=== PATIENT | female | born 1985 | race Caucasian/White ===

== ENCOUNTER 2016-05-30 18:12 | Emergency (ER) | payer SELFPAY ==
[2016-05-30 18:43] VITALS: TEMP 99.3; BMI 28.5
[2016-05-30 18:55] LABS: AUTOMATED BASOPHIL 0.2 % (0-2); AUTOMATED EOSINOPHIL 0.2 % (0-5); AUTOMATED LYMPH 6.4 % (17-44); AUTOMATED MONOCYTE 3.4 % (3-10); AUTOMATED NEUTROPHIL 89.8 % (45-76); MPV 7.7 fL (7.4-10.4)
[2016-05-30 19:08] LABS: BLOOD UREA NITROGEN 6 MG/DL (7-17); CALC CORRECTED 8.9 MG/DL (8.4-10.2); CALCIUM 8.7 MG/DL (8.4-10.2); CALCULATED OSMOLALITY 271 MOs/Kg (270-290); CHLORIDE 105 mEq/L (98-107); GLUCOSE 105 MG/DL (70-99); SODIUM LEVEL 142 mEq/L (137-146); TOTAL PROTEIN 7.5 G/DL (6.3-8.2)
[2016-05-30] MEDS ORDERED: VALACYCLOVIR HCL 500 MG CAPLET PO ONE (19:31)
--- NOTE | 2016-05-30 19:38 | EDPRACDOC ---
- General Information Chief Complaint: Female Urogenital Problems Stated Complaint: FEVER,ABD PAIN Time Seen by Provider: 05/30/16 19:16 Information Source: Patient Mode of Arrival: Car Home Medications: Home Medications Dicyclomine HCl [Bentyl] 10 mg PO Q6H #14 cap 05/19/14 Hydrocodone Bit/Acetaminophen [Hydrocodon-Acetaminophen 5-325] 1 tab PO Q4H PRN #10 tab 05/19/14 Promethazine [Phenergan] 25 mg PO Q8H PRN #14 tab 05/19/14 Cephalexin Monohydrate [Keflex] 500 mg PO Q6H #40 cap 05/30/16 Oxycodone Immediate Release [Oxycodone Immediate Release (OxyIR)] 5 - 15 mg PO Q4H PRN #30 tab 05/30/16 Valacyclovir HCl [Valtrex] 1,000 mg PO TID #10 tablet 05/30/16 Allergies/Adverse Reactions: Allergies Allergy/AdvReac Type Severity Reaction Status Date / Time aspirin Allergy Nausea/Vomi Verified 05/30/16 18:41 ting Penicillins Allergy Angioedema* Verified 05/30/16 18:41 tramadol Allergy Hives* Verified 05/30/16 18:41 - History of Present Illness Onset: 6 days Symptoms Started: Spontaneous Relevant History: Reports: Sexually Active Vaginal Lesions: Reports: Vesicles (PAINFUL), Ulcers Vaginal Discharge: Reports: Clear Associated Signs & Symptoms: Reports: Fever, Dysuria, Nausea, Vaginal Discharge. Denies: Frequency, Urgency ED Past Medical History - History Reviewed Yes Nurses notes reviewed and agree except as marked - Patient Medical History Psychological History: Reports: Anxiety Additional Past Medical History: lipoma Surgical History: Reports: Other (TUBAL LIGATION) EDM Review of Systems - Review of Systems ROS Negative Except as Marked: Yes All systems reviewed and were negative except as marked - Physical Exam Constitutional: No apparent distress, Alert Oriented to: Time, Person, Place Last recorded Vital Signs: Last Vital Signs Temp 99.3 F 05/30/16 18:41 Pulse 128 H 05/30/16 18:41 Resp 20 05/30/16 18:41 BP 129/71 05/30/16 18:41 Pulse Ox 98 05/30/16 18:41 Oxygen Pulse Oxygen Saturation 98 O2 Device Room Air Oxygen Flow Rate Fraction of Inspired Oxygen ( FIO2) - HEENT Head: Normal Oropharynx: Normal. negative: Membranes Dry - GI Auscultation: Normal Palpation: Normal Tenderness: Non tender - Bladder: Normal External: Rash Vagina: Lesions (CLEAR PAINFUL VESICLES ON EXTERNAL VAGINAL AND POSTERIOR FORCHETTE) - Musculoskeletal Back: Normal Extremities: Normal - Integumentary Skin: Normal, Warm, Dry - Neurologic Memory Impaired: Normal Mood Description: Anxious - Results 05/30/16 18:47 05/30/16 18:47 WBC 12.3 xk/uL (3.8-10.8) H 05/30/16 18:47 RBC 4.51 xM/uL (4.20-5.40) 05/30/16 18:47 Hgb 11.6 g/dL (12.0-16.0) L 05/30/16 18:47 Hct 35.8 % (36-47) L 05/30/16 18:47 MCV 80 fL (81-99) L 05/30/16 18:47 MCH 25.7 pg (27-32) L 05/30/16 18:47 MCHC 32.3 g/dl (33-36) L 05/30/16 18:47 RDW 16.5 % (11.5-14.5) H 05/30/16 18:47 Plt Count 228 xk/uL (130-400) 05/30/16 18:47 MPV 7.7 fL (7.4-10.4) 05/30/16 18:47 Neut % (Auto) 89.8 % (45-76) H 05/30/16 18:47 Lymph % (Auto) 6.4 % (17-44) L 05/30/16 18:47 [place] % (Auto) 3.4 % (3-10) 05/30/16 18:47 Eos % (Auto) 0.2 % (0-5) 05/30/16 18:47 Baso % (Auto) 0.2 % (0-2) 05/30/16 18:47 Absolute Neuts (auto) 10.95 xk/uL (1.7-8.2) H 05/30/16 18:47 Absolute Lymphs (auto) 0.74 xk/uL (0.65-4.75) 05/30/16 18:47 Sodium 142 mEq/L (137-146) 05/30/16 18:47 Potassium 3.5 mEq/L (3.5-5.1) 05/30/16 18:47 Chloride 105 mEq/L (98-107) 05/30/16 18:47 Carbon Dioxide 21 mMOL/L (22-33) L 05/30/16 18:47 Anion Gap 20 mEq/L (8-16) H 05/30/16 18:47 BUN 6 MG/DL (7-17) L 05/30/16 18:47 Creatinine 0.60 MG/DL (0.52-1.04) 05/30/16 18:47 Estimated GFR (MDRD) > 60 mL/min (>=60) 05/30/16 18:47 Glucose 105 MG/DL (70-99) H 05/30/16 18:47 Calculated Osmolality 271 MOs/Kg (270-290) 05/30/16 18:47 Calcium 8.7 MG/DL (8.4-10.2) 05/30/16 18:47 Corrected Calcium 8.9 MG/DL (8.4-10.2) 05/30/16 18:47 Total Bilirubin 0.4 MG/DL (0.2-1.3) 05/30/16 18:47 AST 30 IU/L (14-36) 05/30/16 18:47 ALT 57 IU/L (9-52) H 05/30/16 18:47 Alkaline Phosphatase 95 IU/L (38-126) 05/30/16 18:47 Total Protein 7.5 G/DL (6.3-8.2) 05/30/16 18:47 Albumin 3.8 G/DL (3.5-5.0) 05/30/16 18:47 Lab Results 05/30/16 05/30/16 18:47 18:47 WBC 12.3 H RBC 4.51 Hgb 11.6 L Hct 35.8 L MCV 80 L MCH 25.7 L MCHC 32.3 L RDW 16.5 H Plt Count 228 MPV 7.7 Neut % (Auto) 89.8 H Lymph % (Auto) 6.4 L [place] % (Auto) 3.4 Eos % (Auto) 0.2 Baso % (Auto) 0.2 Absolute Neuts (auto) 10.95 H Absolute Lymphs (auto) 0.74 Sodium 142 Potassium 3.5 Chloride 105 Carbon Dioxide 21 L Anion Gap 20 H BUN 6 L Creatinine 0.60 Estimated GFR (MDRD) > 60 Glucose 105 H Calculated Osmolality 271 Calcium 8.7 Corrected Calcium 8.9 Total Bilirubin 0.4 AST 30 ALT 57 H Alkaline Phosphatase 95 Total Protein 7.5 Albumin 3.8 - Additional Information GIVEN 1WEEK OF SYMPTOMS AND LOW GRADE FEVER, WILL TREAT FOR SECONDARY CELLULITIS. - Departure Disposition: Home Condition: Stable Final Diagnosis: Genital herpes Qualifiers: Herpes simplex infection site: vulvovaginitis Qualified Code(s): A60.04 - Herpesviral vulvovaginitis Instructions: Genital Herpes Simplex (ED) Education/Counseling Given To: Patient, Significant Other Education/Counseling Given Regarding: Diagnosis, Treatment, Prognosis Prescriptions: Cephalexin Monohydrate [Keflex] 500 mg PO Q6H #40 cap Oxycodone Immediate Release [Oxycodone Immediate Release (OxyIR)] 5 - 15 mg PO Q4H PRN #30 tab PRN Reason: Pain Valacyclovir HCl [Valtrex] 1,000 mg PO TID #10 tablet
[2016-05-30 21:09] VITALS: BP 114/75; PULSE 115
== END 2016-05-30 21:00 | disposition home or self-care (01) ==
LOC: ED 18:12
DX: A60.04 Herpesviral vulvovaginitis (principal)
CPT/HCPCS: 36415; 80053; 81025; 85025; 99283; J3490